=== PATIENT | male | born 1965 | race Caucasian/White ===

== ENCOUNTER → 2021-06-01 14:47 | Outpatient (CLI) | payer OTHER, SELFPAY ==
[2021-06-01 17:52] LABS: COVID19 -Nasal RAPID Negative (Negative)
== END ==
PROVIDERS: Visit Provider Nurse Practitioner
DX: Z01.812 Encounter for preprocedural laboratory examination (principal); Z20.822 Contact with and (suspected) exposure to COVID-19
CPT/HCPCS: 87635

== ENCOUNTER 2021-06-02 11:54 | Day surgery (SDC) | payer OTHER, SELFPAY ==
--- NOTE | 2021-06-02 | PATH_ITS ---
[facility] Accession Number: [id number] . 01 Material submitted: . PART A: colon - ICD POLYP PART B: colon - TRANSVERSE COLON POLYP . 02 Diagnosis: A. Designated ICD, Polyp, Biopsy: Tubular adenoma. . B. Transverse Colon, Polyp, Biopsy: Tubular adenoma. MRV 06/04/2021 1009 Local . 02 Electronically signed: . Heather Acosta MD, Pathologist NPI- [id number] . 01 Gross description: . Part A: ICD POLYP: Received in formalin is 1 fragment(s) of munguia, soft tissue measuring 0.3 x 0.2 x 0.1 cm submitted entirely in 1 cassette(s) Part B: TRANSVERSE COLON POLYP: Received in formalin is 1 fragment(s) of munguia, soft tissue measuring 0.4 x 0.1 x 0.1 cm submitted entirely in 1 cassette(s) /SHAJI 06/03/2021 0445 Local . 02 Pathologist provided ICD-10: D12.3, D12.6 . 02 CPT . 114443, [id number] Performed at: 01 [facility] [address] [id number] MD Joo Grant MD Phone: [phone] Performed at: 02 [facility] [id number] [place], [place] [id number] MD Heather Acosta MD Phone: [phone]
[2021-06-02 12:27] VITALS: BMI 35.7
[2021-06-02 12:30] VITALS: BP 131/85; PULSE 97; RESP 16; TEMP 36.7; O2SAT 96
[2021-06-02] MEDS: SODIUM CHLORIDE 0.9% 1,000 ML 84 ML IV (12:34)
--- NOTE | 2021-06-02 12:53 | PM.HP.1 ---
History of Present Illness History of Present Illness Date Patient Seen: 06/02/21 Time Patient Seen: 12:54 Chief complaint: SDC Narrative: Patient reports a family history of colon cancer in a paternal grandfather Patient History Medical History GERD (gastroesophageal reflux disease) Hypercholesteremia Family & Social History Social History: household members spouse Tobacco & Substance use: Smoking Status Never smoker alcohol intake never Substance Use Type does not use Meds Home Medications and Allergies Home Medications Medication Instructions Recorded Confirmed Type omeprazole 20 mg capsule,delayed 20 mg PO QDAY #0 03/13/17 06/02/21 History release atorvastatin 10 mg tablet 10 mg PO BEDTIME 06/02/21 06/02/21 History Allergies Allergy/AdvReac Type Severity Reaction Status Date / Time No Known Drug Allergies Allergy Verified 06/02/21 12:17 Review of Systems Review of Systems ROS: Yes All systems reviewed with the patient and are negative except as otherwise documented Constitutional Comments: Has felt a little hot and cold in the preop Exam Vital Signs (past 8 hours): - 06/02/21 12:30 Temperature 98.0 F Pulse Rate 97 H Respiratory Rate 16 Blood Pressure 131/85 Pulse Oximetry 96 Oxygen Delivery Method Room Air Const General: cooperative and comfortable Orientation: alert HENMT Head: normocephalic Ears: external ears normal Nose: external nose normal Face and sinus: normal facial exam Mouth: oral mucosae normal Eyes General: appearance normal, both eyes and all related structures Neck Neck: normal visual inspection Chest Chest: normal inspection of the chest Resp Effort & Inspection: normal respiratory effort Auscultation: clear to auscultation bilaterally Cardio Rate: regular rate Rhythm: regular rhythm Heart Sounds: no murmurs GI Inspection: normal to inspection Palpation: soft and No tender Auscultation: normal bowel sounds Skin General: no rashes or lesions noted and No jaundice Neuro General: patient alert and moves all extremities Cognition: normal cognition Speech: speech normal Extrem General: no pedal edema Psych Appearance: grossly normal Assessment & Plan Assessment & Plan narrative: 55-year-old male here for his index colonoscopy. The there is a family history colon cancer in his paternal grandfather. Colonoscopy is planned for today.
--- NOTE | 2021-06-02 12:56 | PM.PREOP ---
Pre-operative Note COVID-19 COVID-19 status: Negative Result date/Date tested (Pos, Neg/Pending): 06/01/21 Interval Note History & Physical reviewed/Exam performed by Physician: Yes Changes to H&P: No ASA Class (for procedural sedation): II
[2021-06-02] MEDS: fentaNYL 250 MCG/5 ML INJ IV (13:09)
[2021-06-02] MEDS: MIDAZOLAM 5 MG/5 ML VIAL IV (13:09)
--- NOTE | 2021-06-02 13:32 | P.OP.ENDO_ITS ---
Operative Date/Time/Diagnoses Date of procedure: 06/02/21 Time of procedure: 13:32 Pre-op diagnosis: Paternal grandfather with colon cancer indicated for colon cancer screening Post-op diagnosis: same Procedure & Clinicians Study performed: Colonoscopy with hot snare polypectomy and cold forceps polypectomy Same procedure as scheduled: Yes Indications: Paternal grandfather with colon cancer indicated for colon cancer screening. Surgeon: Arjun Mo Procedure Notes SCOAP/Timeout: Done Procedure in detail: After the risks and benefits were explained, written and verbal informed consent was obtained. The patient was brought into the procedure room and placed into the left lateral decubitus position. Conscious sedation medication was applied as per nursing documentation. Digital rectal examination was accomplished. The scope was introduced into the patient and advanced under direct visualization to the cecum as identified by the appendiceal orifice and ileocecal valve. The scope was slowly withdrawn to ca refully examine the mucosa for any defects or lesions. Comprehensive imaging was accomplished throughout the rectum including the dentate line. The colon was decompressed, the scope was then removed from the patient who tolerated the procedure well. 2 mg Versed 50 mcg fentanyl Bowel prep adequate Adult colonoscope Scope withdrawal time: 13 minutes Sedation minutes: 21 Complications: none Impression: There was a diminutive polyp identified on the ileocecal valve removed with cold forceps. In the transverse colon there was a 5-6 mm slightly excavated polyp removed with hot snare polypectomy. No additional pathology was appreciated throughout. Endoscopic diagnosis Small colon polyps Post-procedure Recommendations: Colonscopy in 5 years Plan for aftercare: 1. Await histopathology 2. If adenomatous features are confirmed, repeat colonoscopy 5 years. Disposition: PACU
[2021-06-02 13:36] VITALS: BP 118/66; PULSE 74; RESP 16; TEMP 36.4; O2SAT 97
[2021-06-02 13:41] VITALS: BP 119/71; PULSE 73; RESP 12; O2SAT 95
[2021-06-02 13:46] VITALS: BP 118/70; PULSE 74; RESP 16; O2SAT 95
== END 2021-06-02 14:02 | disposition home or self-care (01) ==
PROVIDERS: PCP Internal Medicine; Referring Provider Internal Medicine Gastroenterology; Visit Provider Internal Medicine Gastroenterology
PROC: 0DJD8ZZ Inspection of Lower Intestinal Tract, Via Natural or Artificial Opening Endoscopic (ICD-10-PCS; CPT 45378; principal; 2021-06-02 13:00)
DX: Z12.11 Encounter for screening for malignant neoplasm of colon (principal); K21.9 Gastro-esophageal reflux disease without esophagitis; E78.00 Pure hypercholesterolemia, unspecified; D12.3 Benign neoplasm of transverse colon; D12.0 Benign neoplasm of cecum
CPT/HCPCS: 45385; 45380; J2250; J3010

== ENCOUNTER 2023-04-09 19:08 | Inpatient (IN) | payer OTHER, SELFPAY ==
[2023-04-09 19:13] VITALS: BP 165/82; PULSE 92; RESP 18; TEMP 36.7; O2SAT 98; BMI 35.7
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
--- NOTE | 2023-04-09 19:56 | DI.RAD.S_ITS ---
PROCEDURE: XR FEMUR LT MIN 2V INDICATIONS: periprosthetic fx TECHNIQUE: 4 images, two views views of the femur were acquired. COMPARISON: None. FINDINGS: Bones: No previously unidentified fractures or dislocations. The longitudinally oriented proximal diaphyseal fracture adjacent to the femoral component of the left total hip arthroplasty is again well seen on this projection, lateral view, further confirming acute trauma to that site. No suspicious bony lesions. Soft tissues: No suspicious soft tissue calcifications or masses. IMPRESSION: No distal fracture found at the left femur. Further confirmation of nondisplaced longitudinally oriented periprosthetic proximal femoral fracture. Dictated by: Porfirio Pandya M.D. on 04/09/2023 at 20:34 Approved by: Porfirio Pandya M.D. on 04/09/2023 at 20:35
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
[2023-04-09] MEDS: OXYCODONE/ACETAMINOPHEN 5/325 TABLET 2 TAB PO (20:11)
--- NOTE | 2023-04-09 21:30 | DI.RAD.S_ITS ---
PROCEDURE: XR CHEST 1V INDICATIONS: trauma, pre-op TECHNIQUE: One view of the chest was acquired. COMPARISON: None. FINDINGS: Surgical changes and devices: None. Lungs and pleura: Lungs are clear. No pleural effusions or pneumothorax. Mediastinum: Mediastinal contours appear normal. Heart size is normal. Bones and chest wall: No suspicious bony lesions. Overlying soft tissues appear unremarkable. IMPRESSION: Reduced inspiratory volume, no trauma found. Dictated by: Porfirio Pandya M.D. on 04/09/2023 at 21:58 Approved by: Porfirio Pandya M.D. on 04/09/2023 at 21:58
[2023-04-09 21:54] LABS: Add Manual Diff / Slide Review NO; Basophils Absolute Auto 200 /uL (0-100); Eosinophils Absolute Auto 100 /uL (0-450); Eosinophils Percent Auto 1.1 % (2-4); Hematocrit 43.1 % (41-53); Hemoglobin 14.5 g/dL (13.5-17.5); Lymphocytes Absolute Auto 2400 /uL (1100-4500); Lymphocytes Percent Auto 21.1 % (25-40); Mean Corpuscular HGB Conc 33.7 % (30-36); Mean Corpuscular Hemoglobin 27.7 PG (26-34); Mean Corpuscular Volume 82.2 fL (80-100); Monocytes Absolute Auto 800 /uL (0-900); Monocytes Percent Auto 7.3 % (3-14); Neutrophils Absolute Auto 7700 /uL (1500-7000); Neutrophils Percent Auto 68.5 % (50-75); Platelet Count 269 X10^3/uL (150-400); Red Blood Cell Count 5.24 X10^6/uL (4.5-5.9); Red Cell Distribution Width 14.7 % (11.6-14.8); White Blood Cell Count 11.3 X10^3/uL (4.5-11.0)
[2023-04-09 22:07] LABS: Alanine Aminotransferase 26 IU/L (<50); Albumin 4.1 g/dL (3.5-5.0); Albumin Globulin Ratio 1.4 (1.0-2.8); Alkaline Phosphatase 82 U/L (38-126); Aspartate Aminotransferase 35 IU/L (17-59); BUN Creatinine Ratio 17.2 (6-22); Blood Urea Nitrogen 17 mg/dL (9-20); Carbon Dioxide 23 mmol/L (22-32); Chloride 106 mmol/L (98-107); Estimated Glomerular Filt Rate > 60 mL/min (>60); Glucose 97 mg/dL (70-100); HEMOLYSIS 43 (0-50); Potassium 4.2 mmol/L (3.4-5.1); Sodium 138 mmol/L (137-145); Total Protein 7.1 g/dL (6.3-8.2)
[2023-04-09 22:30] VITALS: BP 122/63; PULSE 76; O2SAT 97
[2023-04-09 22:56] VITALS: BP 157/91; PULSE 85; RESP 16; TEMP 36.7; O2SAT 98
[2023-04-09] MEDS: OXYCODONE/ACETAMINOPHEN 5/325 TABLET 1 TAB PO (23:21)
[2023-04-10] VITALS (13 sets, daily range): BP systolic 124–166; BP diastolic 70–98; PULSE 72–104; RESP 11–21; TEMP 36.1–37.2; O2SAT 94–99; BMI 35.7
--- NOTE | 2023-04-10 | DI.RAD.S_ITS ---
PROCEDURE: XR FEMUR LT MIN 2V INDICATIONS: LT FEMUR ORIF TECHNIQUE: 8 intraoperative fluoroscopic spot films were obtained COMPARISON: [facility], , XR FEMUR LT MIN 2V, 04/09/2023, 20:05. FINDINGS: Sequential placement of femoral lateral cortical sideplate and screws which appears in good position IMPRESSION: Fluoroscopic guidance Approved by: Krishna Damian M.D. on 04/10/2023 at 16:25
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
[2023-04-10] MEDS: HYDROMORPHONE 0.5 MG INJ IV (08:28)
[2023-04-10] MEDS: SODIUM CHLORIDE 0.9% 1,000 ML 125 ML IV ×2 (08:29)
--- NOTE | 2023-04-10 08:40 | PC.NURSE ---
Addendum entered by Layla Brand R.N. 04/10/23 18:13: 1755 pt to room 213 from pacu-ORIF Left hip-drsg cdi pt sleepy but easily aroused, vss RA 94%pt wants to get oob then states Im still out of it pt alarmed and reminded to call for assistance family in room. SCD's on Addendum entered by Layla Brand R.N. 04/10/23 12:44: off the floor to OR Original Note: Pt up to BR to void-using walker and SBA. Pain level 9/10 medicated with dilauded O.5mg ivp. here earlier this am and plan for repair of left hip fx.
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
[2023-04-10] MEDS: ONDANSETRON 4 MG/2 ML INJ IV ×2 (12:37→17:13)
[2023-04-10] MEDS: LACTATED RINGERS 1,000 ML 42 ML IV ×4 (12:38→18:53)
[2023-04-10] MEDS: CEFAZOLIN 2 GM/100 ML PREMIX 100 ML IV ×2 (13:54→22:31)
--- NOTE | 2023-04-10 14:29 | SUR.OPER ---
Lateral on padded OR bed. Gel axillary roll. Arms secured on padded armboard with pillow supporting top arm. Padded hip positioner braces x4 - anterior and posterior chest and pelvis. Additional gel pad used anterior pelvis. Gel pad under bottom leg from knee to foot and secured with tape over sheet.
[2023-04-10] MEDS: TRANEXAMIC ACID 1,000 MG in SODIUM CHLORIDE 0.9% 100 ML 200 MG IV ×2 (14:36→16:10)
[2023-04-10] MEDS: BUPIVACAINE 0.25% (PF) 30 ML, EPINEPHrine 0.15 MG INJ (14:37)
[2023-04-10] MEDS: ACETAMINOPHEN IV 1,000 MG/100 ML VIAL 400 MG IV (14:49)
[2023-04-10] MEDS: BUPIVACAINE LIPOSOME 266 MG/20 ML VIAL INJ (16:43)
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
[2023-04-10] MEDS: KETOROLAC 30 MG/ML VIAL IV (17:13)
[2023-04-10] MEDS: HYDROMORPHONE 2 MG INJ IV (17:14)
[2023-04-10] MEDS: OXYCODONE IR 10 MG TABLET PO (18:55)
[2023-04-10] MEDS: DOCUSATE 100 MG CAPSULE PO (22:31)
[2023-04-10] MEDS: ATORVASTATIN 20 MG TABLET 10 MG PO (22:31)
[2023-04-11] VITALS: BP 129/71; PULSE 100; RESP 16; TEMP 36.3; O2SAT 98
[2023-04-11] MEDS: ONDANSETRON 4 MG ODT PO (02:16)
[2023-04-11] MEDS: ONDANSETRON 4 MG/2 ML INJ IV (02:45)
[2023-04-11] MEDS: OXYCODONE IR 10 MG TABLET PO ×3 (03:02→14:40)
[2023-04-11 05:09] LABS: Hematocrit 39.1 % (41-53); Hemoglobin 13.1 g/dL (13.5-17.5); Mean Corpuscular HGB Conc 33.5 % (30-36); Mean Corpuscular Hemoglobin 27.7 PG (26-34); Mean Corpuscular Volume 82.7 fL (80-100); Platelet Count 280 X10^3/uL (150-400); Red Blood Cell Count 4.73 X10^6/uL (4.5-5.9); Red Cell Distribution Width 14.6 % (11.6-14.8); White Blood Cell Count 13.4 X10^3/uL (4.5-11.0)
[2023-04-11] MEDS: CEFAZOLIN 2 GM/100 ML PREMIX 100 ML IV (05:52)
[2023-04-11] MEDS: PANTOPRAZOLE DR 20 MG TABLET PO (08:56)
[2023-04-11] MEDS: DOCUSATE 100 MG CAPSULE PO (08:56)
[2023-04-11] MEDS: ENOXAPARIN 40 MG/0.4 ML SYRINGE SUBCUT (08:56)
[2023-04-11 09:03] VITALS: BP 123/66; PULSE 88; RESP 17; TEMP 36.6; O2SAT 94
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
[2023-04-11] MEDS: polyethylene glycoL 3350 17 GM POWD.PACK PO (12:45)
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
--- NOTE | 2023-04-11 14:41 | PC.NURSE ---
Lovanox teaching done. Pt demonstrated administration of lovanox in front of this nurse. discharge teaching and paper work given. IV removed
== END 2023-04-11 15:00 | disposition home or self-care (01) | DRG 481 ==
LOC: ED 19:26 → AC 21:52
PROVIDERS: Admitting Provider Orthopaedic Surgery Foot and Ankle Surgery; Emergency Provider Emergency Medicine; Referring Provider Emergency Medicine; Visit Provider Orthopaedic Surgery Foot and Ankle Surgery
PROC: 0QH704Z Insertion of Internal Fixation Device into Left Upper Femur, Open Approach (ICD-10-PCS; principal; 2023-04-10 10:45)
DX: S72.25XA Nondisplaced subtrochanteric fracture of left femur, initial encounter for closed fracture (principal); M97.02XA Periprosthetic fracture around internal prosthetic left hip joint, initial encounter; K21.9 Gastro-esophageal reflux disease without esophagitis; E78.00 Pure hypercholesterolemia, unspecified; V86.56XA Driver of dirt bike or motor/cross bike injured in nontraffic accident, initial encounter; Z87.891 Personal history of nicotine dependence; Z20.822 Contact with and (suspected) exposure to COVID-19
CPT/HCPCS: 36415; 71045; 73502; 73552; 76000; 80053; 85025; 85027; 93005; 97116; 97161; 99284; C9290; J0131; J0171; J0330; J0690; J1100; J1170; J1650; J1885; J2405; J2704; J3010

== ENCOUNTER → 2024-09-10 12:58 | Outpatient (ROUT) | payer OTHER, SELFPAY ==
[2023-04-10 00:15] VITALS: BMI 35.7
== END ==
PROVIDERS: Visit Provider Dermatology
DX: L02.212 Cutaneous abscess of back [any part, except buttock and flank] (principal)
CPT/HCPCS: 87070; 87205

== ENCOUNTER → 2024-12-20 10:56 | Outpatient (ROUT) | payer OTHER, SELFPAY ==
[2023-04-10 00:15] VITALS: BMI 35.7
== END ==
PROVIDERS: Visit Provider Dermatology
DX: D48.5 Neoplasm of uncertain behavior of skin (principal); Z78.9 Other specified health status; L53.8 Other specified erythematous conditions; R20.8 Other disturbances of skin sensation
CPT/HCPCS: 87070; 87075; 87205

== ENCOUNTER → 2025-02-06 17:02 | Outpatient (CLI) | payer OTHER, SELFPAY ==
[2023-04-10 00:15] VITALS: BMI 35.7
--- NOTE | 2025-02-06 17:03 | DI.MRI.S_ITS ---
PROCEDURE: MR KNEE RT WO CON INDICATIONS: TEAR OF MEDIAL MENISCUS RT KNEE TECHNIQUE: Noncontrast sagittal PD fast spin echo and T2 fast spin echo with fat saturation, sagittal 3-D FLASH with fat saturation; coronal T1 spin echo and PD fast spin echo with fat saturation, and axial PD fast spin echo with fat saturation through the knee. COMPARISON: [facility] [place], CR, XR KNEE 4+ VIEWS RIGHT, 01/28/2025, 11:37. FINDINGS: Image quality: Excellent. Anterior cruciate ligament: Intact. Posterior cruciate ligament: Intact. Medial collateral ligament: Intact. Lateral collateral ligament: Intact. Medial meniscus: Complex tearing of the medial meniscus with a horizontal oblique component at the posterior horn and body extending to the femoral articular surface as well as a superiorly displaced meniscal flap component at the meniscal body with tissue displaced into the medial femoral gutter. Lateral meniscus: Shallow radial tearing at the junction of the anterior horn and body of the lateral meniscus. No meniscal extrusion. Medial and lateral tendons: The semimembranosus tendon insertions appear intact. Visualized portions of the pes anserinus tendons appear normal. The popliteus tendon is intact. Iliotibial band appears normal. Anterior structures: Mild patellar tendinosis. Distal quadriceps tendon is intact. No patellar subluxation. No femoral trochlear dysplasia or ventral trochlear prominence. Mild scarring in the infrapatellar fat pad. Bones: No bone marrow contusions or fractures. Medial femorotibial cartilage: Mild partial-thickness cartilage thinning and surface irregularity in the weight-bearing portion of the medial femorotibial compartment. Lateral femorotibial cartilage: No focal cartilage defect. Patellofemoral cartilage: Deep cartilage fissuring at the median ridge/lateral facet of the patella. Soft tissues: Moderate joint effusion. Trace medial popliteal cyst. Visualized musculature is normal in bulk. Nonspecific prepatellar subcutaneous soft tissue edema. IMPRESSION: 1. Complex tearing of the medial meniscus with a horizontal oblique component at the posterior horn and body extending to the femoral articular surface and a superimposed superiorly displaced meniscal flap component at the meniscal body extending into the medial femoral gutter. 2. Shallow radial tearing of the junction of the anterior horn and body of the lateral meniscus without meniscal extrusion. 3. 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 Deep cartilage fissuring in the patellofemoral compartment. 4. Mild patellar tendinosis. 5. No acute trabecular bone injury. Cruciate and collateral ligaments are intact. 6. Moderate joint effusion. Approved by: Umesh Mitchell M.D. on 02/07/2025 at 3:38
== END ==
PROVIDERS: Referring Provider Orthopaedic Surgery Foot and Ankle Surgery; Visit Provider Orthopaedic Surgery Foot and Ankle Surgery
DX: S83.231A Complex tear of medial meniscus, current injury, right knee, initial encounter (principal); S83.281A Other tear of lateral meniscus, current injury, right knee, initial encounter; M94.261 Chondromalacia, right knee; M25.461 Effusion, right knee
CPT/HCPCS: 73721